=== PATIENT | male | born 1930 | race Caucasian/White ===

== ENCOUNTER 2016-12-05 10:02 | Day surgery (SDC) | payer MEDICARE ==
[~2016-12-05 10:02] MED LIST: FENTANYL 250 MCG/5 ML AMP IV PRN; LACTATED RINGERS 1,000 ML IV SCH; MIDAZOLAM HCL 5 MG/5 ML VIAL IV PRN
[2016-12-05] MEDS ORDERED: LACTATED RINGERS 1,000 ML ONE (10:47)
[2016-12-05] MEDS ORDERED: IV START KIT ONE (10:47)
[2016-12-05] MEDS ORDERED: FENTANYL 250 MCG/5 ML AMP ONE (12:07)
[2016-12-05] MEDS ORDERED: MIDAZOLAM HCL 5 MG/5 ML VIAL ONE (12:07)
[2016-12-05] MEDS ORDERED: PROPOFOL 20 ML IV ONE (12:41)
[2016-12-05] MEDS ORDERED: ALBUTEROL/IPRATROPIUM 2.5/0.5 MG 3 ML/EACH DOSE NEB ONE (13:16)
== END 2016-12-05 14:02 | disposition home or self-care (01) ==
LOC: SDC 10:02
PROVIDERS: ATTEND Internal Medicine Gastroenterology
PROC: 0DJD8ZZ Inspection of Lower Intestinal Tract, Via Natural or Artificial Opening Endoscopic (ICD-10-PCS; principal; 2016-12-05)
DX: Z12.11 Encounter for screening for malignant neoplasm of colon (principal); K57.30 Diverticulosis of large intestine without perforation or abscess without bleeding; R19.4 Change in bowel habit; J44.9 Chronic obstructive pulmonary disease, unspecified; Z86.73 Personal history of transient ischemic attack (TIA), and cerebral infarction without residual deficits; Z86.010 Personal history of colon polyps
CPT/HCPCS: G0105; J3010; J2250; J7120